=== PATIENT | female | born 1965 | race Caucasian/White ===

== ENCOUNTER 2017-06-07 09:01 | Emergency (ER) | payer OTHER ==
[~2017-06-07] VITALS: Ht 165.1 cm; Wt 82.0 kg
[~2017-06-07 09:01] MED LIST: BENA25TA5 PO; BUME1TAB PO; LISI-363 PO; PRED50TA PO; SERT25TA83 PO
[2017-06-07 09:10] VITALS: BP 108/60; PULSE 69; RESP 20; TEMP 97.4; O2SAT 98
[2017-06-07] MEDS ORDERED: ASPIRIN 81 MG CHEW TAB PO ONE (09:30)
[2017-06-07] MEDS ORDERED: NITROGLYCERIN 0.4 MG SL 25 TABS/BTL SL ONE (09:30)
[2017-06-07] MEDS ORDERED: SODIUM CHLORIDE 0.9% FLUSH 10 ML FLUSH IVF PRN (09:30)
[2017-06-07 09:43] VITALS: RESP 14
[2017-06-07 09:44] VITALS: BP 83/50
[2017-06-07] MEDS ORDERED: SODIUM CHLOR 0.9% 1000 ML INJ 1,000 ML IV ONE (09:45)
[2017-06-07 09:50] LABS: AUTOMATED NEUTROPHIL # 4.4 TH/MM3 (1.8-7.7); BASOPHIL # 0.1 TH/MM3 (0-0.2); BASOPHIL % 1.1 % (0.0-2.0); EOSINOPHIL # 0.7 TH/MM3 (0-0.4); EOSINOPHIL % 5.6 % (0.0-4.0); HEMATOCRIT 36.7 % (35.0-46.0); HEMOGLOBIN 12.5 GM/DL (11.6-15.3); LYMPH % 39.9 % (9.0-44.0); LYMPHOCYTE # 4.9 TH/MM3 (1.0-4.8); MEAN CELL VOLUME 95.5 FL (80.0-100.0); MEAN CORPUSCULAR HEMOGLOBIN 32.4 PG (27.0-34.0); MEAN PLATELET VOLUME 9.7 FL (7.0-11.0); MONO % 17.5 % (0.0-8.0); MONOCYTE # 2.2 TH/MM3 (0-0.9); NEUT % 35.9 % (16.0-70.0); PLATELET COUNT 442 TH/MM3 (150-450); RED BLOOD COUNT 3.84 MIL/MM3 (4.00-5.30); RED CELL DISTRIBUTION WIDTH 12.6 % (11.6-17.2); WHITE BLOOD COUNT 12.3 TH/MM3 (4.0-11.0)
--- NOTE | 2017-06-07 09:50 | RADRPT ---
EXAM DATE/TIME: 06/07/2017 09:34 [place] COMPARISON: No previous studies available for comparison. INDICATIONS : Pain under right breast 2 days. MEDICAL HISTORY : None. SURGICAL HISTORY : None. ENCOUNTER: Initial ACUITY: 2 days PAIN SCORE: 9/10 LOCATION: Right chest FINDINGS: Portable AP view of the chest demonstrates a normal-sized cardiac silhouette. No effusion, consolidat ion, or pneumothorax is visualized. The bones and soft tissues demonstrate no acute abnormality. EKG lines overlie the patient. CONCLUSION: No acute cardiopulmonary abnormality is identified. Rafat Lopes MD on June 07, 2017 at 9:47 Board Certified Radiologist. This report was verified electronically.
--- NOTE | 2017-06-07 09:55 | PD ---
HPI Chief Complaint: Chest Pain Time Seen by Provider: 09:28 Travel History International Travel<30 days: No Contact w/Intl Traveler<30days: No Traveled to known affect area: No History of Present Illness HPI Patient is a 51-year-old female presents emergency department with right axillary pain radiating to her right shoulder for the past 24 hours. Patient states he got very intense on the way to work today so she decided to come in and be seen. She states she has been under a lot of stress at work lately. Has a history of high blood pressure and high cholesterol but no diabetes no heart disease. She states she was not having any nausea vomiting or diarrhea but did have some nausea when they started her IV today. She never had a stress test or cardiac catheterization. States the pain is moderate in intensity 7 out of 10, radiation as above, associated signs symptoms and context as above PFSH Past Medical History Anxiety: Yes Depression: Yes Cancer: Yes ( MELANOMA LEFT THIGH) Cardiovascular Problems: Yes High Cholesterol: Yes Chemotherapy: No Diminished Hearing: No Endocrine: No Genitourinary: No Hypertension: Yes Immune Disorder: No Kidney Stones: Yes Musculoskeletal: No Neurologic: No Psychiatric: Yes Reproductive: No Respiratory: No Radiation Therapy: No Tetanus Vaccination: < 5 Years ?: Not Menopausal: Yes Past Surgical History Body Medical Devices: RIGHT LARGE TOE SCREW Gynecologic Surgery: Yes (HYSTERECTOMY) Hysterectomy: Yes Pacemaker: No Other Surgery: Yes (MELANOMA REMOVED FROM L THIGH, LYMPH NODES IN GROIN ALSO) Social History Alcohol Use: Yes (DAILY) Tobacco Use: No Substance Use: No Allergies-Medications (Allergen,Severity, Reaction): Coded Allergies: bacitracin (Unverified Allergy, Severe, 06/07/17) gramicidin D (Unverified Allergy, Severe, SKIN BREAK, 06/07/17) neomycin (Unverified Allergy, Severe, SKIN BREAK, 06/07/17) polymyxin B (Unverified Allergy, Severe, 06/07/17) sulfamethoxazole (Unverified Allergy, Severe, VOMITING, 06/07/17) trimethoprim (Unverified Allergy, Severe, VOMITING, 06/07/17) Reported Meds & Prescriptions Reported Meds & Active Scripts Active Deltasone (Prednisone) 50 Mg Tab 50 Mg PO BID 5 Days 1 TAB PO DAILY X 4 DAYS, THEN 1/2 TAB PO DAILY X 4 DAYS. Reported Benadryl (Diphenhydramine HCl) 25 Mg Tab 25 Mg PO Q4H PRN Bumetanide 1 Mg Tab 1 Mg PO BID Lisinopril 20 Mg Tab 20 Mg PO DAILY Sertraline Hcl (Sertraline HCl) 25 Mg Tab 25 Mg PO DAILY Review of Systems Except as stated in HPI: all other systems reviewed are Neg Physical Exam Narrative GENERAL: Well-developed well-nourished, appears comfortable and in no obvious distress per SKIN: Focused skin assessment warm/dry. HEAD: Atraumatic. Normocephalic. EYES: Pupils equal and round. No scleral icterus. No injection or drainage. ENT: No nasal bleeding or discharge. Mucous membranes pink and moist. NECK: Trachea midline. No JVD. CARDIOVASCULAR: Regular rate and rhythm. No murmur appreciated. There is no chest wall tenderness, no murmurs gallops rubs, 2+ bilateral equal pulses in all 4 extremities. The patient localizes the pain very well to her anterior axillary line about the ninth rib space on the right side. RESPIRATORY: No accessory muscle use. Clear to auscultation. Breath sounds equal bilaterally. GASTROINTESTINAL: Abdomen soft, non-tender, nondistended. Hepatic and splenic margins not palpable. MUSCULOSKELETAL: No obvious deformities. No clubbing. No cyanosis. No edema. NEUROLOGICAL: Awake and alert. No obvious cranial nerve deficits. Motor grossly within normal limits. Normal speech. PSYCHIATRIC: Appropriate mood and affect; insight and judgment normal. Data Data Last Documented VS Vital Signs Date Time Temp Pulse Resp B/P (MAP) Pulse Ox O2 Delivery O2 Flow Rate FiO2 06/07/17 13:35 06/07/17 11:02 82 98 06/07/17 09:43 14 06/07/17 09:33 Room Air 06/07/17 09:10 97.4 Orders Orders Electrocardiogram (06/07/17 09:28) Ckmb (Isoenzyme) Profile (06/07/17 09:28) Complete Blood Count With Diff (06/07/17:28) Comprehensive Metabolic Panel (06/07/17 09:28) Magnesium (Mg) (06/07/17 09:28) Prothrombin Time / Inr (Pt) (06/07/17 09:28) Act Partial Throm Time (Ptt) (06/07/17 09:28) Troponin I (06/07/17 09:28) Ecg Monitoring (06/07/17 09:28) Iv Access Insert/Monitor (06/07/17 09:28) Oximetry (06/07/17 09:28) Oxygen Administration (06/07/17 09:28) Aspirin Chew (Aspirin Chew) (06/07/17 09:30) Sodium Chloride 0.9% Flush (Ns Flush) (06/07/17 09:30) Nitroglycerin Sl (Nitrostat Sl) (06/07/17 09:30) Chest, Single Ap (06/07/17 ) D-Dimer (06/07/17 09:28) Sodium Chlor 0.9% 1000 Ml Inj (Ns 1000 M (06/07/17 09:45) Troponin I (06/07/17 11:11) Ed Discharge Order (06/07/17 12:50) Labs Laboratory Tests Test 06/07/17 09:30 06/07/17 11:29 White Blood Count 12.3 TH/MM3 Red Blood Count 3.84 MIL/MM3 Hemoglobin 12.5 GM/DL Hematocrit 36.7 % Mean Corpuscular Volume 95.5 FL Mean Corpuscular Hemoglobin 32.4 PG Mean Corpuscular Hemoglobin Concent 34.0 % Red Cell Distribution Width 12.6 % Platelet Count 442 TH/MM3 Mean Platelet Volume 9.7 FL Neutrophils (%) (Auto) 35.9 % Lymphocytes (%) (Auto) 39.9 % Monocytes (%) (Auto) 17.5 % Eosinophils (%) (Auto) 5.6 % Basophils (%) (Auto) 1.1 % Neutrophils # (Auto) 4.4 TH/MM3 Lymphocytes # (Auto) 4.9 TH/MM3 Monocytes # (Auto) 2.2 TH/MM3 Eosinophils # (Auto) 0.7 TH/MM3 Basophils # (Auto) 0.1 TH/MM3 CBC Comment AUTO DIFF Differential Total Cells Counted 100 Neutrophils % (Manual) 43 % Lymphocytes % 33 % Monocytes % 18 % Eosinophils % 6 % Neutrophils # (Manual) 5.3 TH/MM3 Differential Comment FINAL DIFF MANUAL Platelet Estimate NORMAL Platelet Morphology Comment NORMAL Prothrombin Time 10.9 SEC Prothromb Time International Ratio 1.1 RATIO Activated Partial Thromboplast Time 26.5 SEC D-Dimer Quantitative (PE/DVT) 0.24 MG/L FEU Blood Urea Nitrogen 20 MG/DL Creatinine 1.32 MG/DL Random Glucose 119 MG/DL Total Protein 7.8 GM/DL Albumin 4.2 GM/DL Calcium Level 9.4 MG/DL Magnesium Level 2.1 MG/DL Alkaline Phosphatase 31 U/L Aspartate Amino Transf (AST/SGOT) 41 U/L Alanine Aminotransferase (ALT/SGPT) 43 U/L Total Bilirubin 0.5 MG/DL Sodium Level 136 MEQ/L Potassium Level 4.0 MEQ/L Chloride Level 99 MEQ/L Carbon Dioxide Level 29.5 MEQ/L Anion Gap 8 MEQ/L Estimat Glomerular Filtration Rate 42 ML/MIN Total Creatine Kinase 82 U/L Troponin I LESS THAN 0.02 NG/ML LESS THAN 0.02 NG/ML MDM Medical Decision Making Medical Screen Exam Complete: Yes Emergency Medical Condition: Yes Interpretation(s) EKG reviewed by me shows sinus rhythm at a rate of 66, normal axis normal R- wave progression. No concerning ST segment changes, intervals within normal limits. This is a normal EKG Differential Diagnosis PE unlikely, ACS unlikely, [place] unlikely, chest wall pain, pleurisy, pericarditis, Narrative Course Patient was roomed in the emergency department, highly atypical pain was worked up with 2 troponins, d-dimer, chest x-ray and EKG all of which were negative. Patient appears comfortable and in no obvious distress. She has an out of the country trip planned this weekend and does not want to stay in the chest pain center. Furthermore her pain being so atypical and is unlikely that she is having a significant blockage. I discussed that no obvious source for pain has been identified but recommended ibuprofen follow-up with a primary care physician next week after she returns. If she changes her mind and would like to have additional evaluation emergency department and consideration for chest pain center she is welcome to return at any time. Diagnosis Primary Impression: Atypical chest pain Disposition: 01 DISCHARGE HOME Condition: Stable Ramon Lemos MD Jun 07, 2017 09:55
[2017-06-07 10:04] LABS: ALBUMIN 4.2 GM/DL (3.4-5.0); AST (GOT) 41 U/L (15-37); BICARBONATE 29.5 MEQ/L (21.0-32.0); BLOOD UREA NITROGEN 20 MG/DL (7-18); CALCIUM 9.4 MG/DL (8.5-10.1); CHLORIDE 99 MEQ/L (98-107); CREATININE 1.32 MG/DL (0.50-1.00); GLOMERULAR FILTRATION RATE 42 ML/MIN (>89); GLUCOSE,RANDOM 119 MG/DL (74-106); MAGNESIUM 2.1 MG/DL (1.5-2.5); SODIUM (NA) 136 MEQ/L (136-145)
[2017-06-07 10:05] LABS: ALT (GPT) 43 U/L (10-53); INTERNATIONAL NORMALIZED RATIO 1.1 RATIO; PROTHROMBIN TIME - PATIENT 10.9 SEC (9.8-11.6)
[2017-06-07 10:06] LABS: D-DIMER 0.24 MG/L FEU (0.00-0.50)
[2017-06-07 10:09] LABS: ALKALINE PHOSPHATASE 31 U/L (45-117); TOTAL BILIRUBIN ADULT 0.5 MG/DL (0.2-1.0); TOTAL PROTEIN 7.8 GM/DL (6.4-8.2); TROPONIN I LESS THAN 0.02 NG/ML (0.02-0.05)
[2017-06-07 10:38] LABS: LYMPHOCYTES 33 % (9-44); MONOCYTES 18 % (0-8); NEUTROPHIL # MANUAL DIFF 5.3 TH/MM3 (1.8-7.7); POLYS (SEG NEUTROPHILS) 43 % (16-70)
[2017-06-07 11:02] VITALS: BP 96/63; PULSE 82; O2SAT 98
--- NOTE | 2017-06-08 09:39 | EKG ---
Date Performed: 06/07/2017 Time Performed: 09:12:22 PTAGE: 51 years EKG: Sinus rhythm NORMAL ECG Since the prior tracing, there has been no significant change PREVIOUS TRACING : 06/01/2012 14.04 DOCTOR: Raul Galdamez Interpretating Date/Time 06/08/2017 09:36:55
== END 2017-06-07 13:36 | disposition home or self-care (01) ==
LOC: NEPC 09:01
DX: R07.89 Other chest pain (principal); I10 Essential (primary) hypertension; E78.00 Pure hypercholesterolemia, unspecified; Z79.899 Other long term (current) drug therapy
CPT/HCPCS: 71045; 80053; 82550; 83735; 84484; 85007; 85027; 85379; 85610; 85730; 93005; 96360; 99285; J7030